=== PATIENT | female | born 1970 | race Caucasian/White ===

== ENCOUNTER 2022-01-10 06:54 | Emergency (ER) | payer OTHER ==
[2022-01-10] MEDS ORDERED: ONDANSETRON 4 MG/2 ML VIAL IVP STA (07:45)
[2022-01-10] MEDS ORDERED: KETOROLAC 15 MG/ML VIAL IVP STA (07:45)
[2022-01-10] MEDS ORDERED: HYDROmorphone 1 MG/ML CARPUJECT IVP STA (07:45)
[2022-01-10] MEDS ORDERED: SODIUM CHLORIDE 0.9% 1,000 ML IV STA (07:45)
--- NOTE | 2022-01-10 07:46 | ED Physician Documentation ---
PD HPI ABD PAIN - Stated complaint Stated Complaint: BACK/SIDE PAIN - Chief complaint Chief Complaint: Abd Pain - History obtained from History obtained from: Patient - Additional information Additional information: 51-year-old woman with history of celiac disease, colitis, recurrent renal colic with lithotripsy x4, history of cholecystectomy. She has had some minor right flank pain over the last few weeks but became much more severe around 7 PM last night. Very reminiscent of prior renal colic. She is nauseous with it. No primary urinary complaints. Review of Systems Ten Systems: 10 systems reviewed and negative Constitutional: denies: Fever, Chills Throat: reports: Reviewed and negative Cardiac: reports: Reviewed and negative Respiratory: reports: Reviewed and negative PD PAST MEDICAL HISTORY - Present Medications Home Medications: Ambulatory Orders Medication Instructions Recorded Confirmed Oxycodone HCl/Acetaminophen 1 - 2 each PO Q6H PRN #14 tablet 01/10/22 [Percocet 5-325 mg Tablet] - Allergies Allergies/Adverse Reactions: Allergies Allergy/AdvReac Type Severity Reaction Status Date / Time Penicillins Allergy Anaphylaxis Verified 01/10/22 07:24 PD ED PE NORMAL - Vitals Vital signs reviewed: Yes - General General: Alert and oriented X 3, Other (She appears uncomfortable clutching the right flank) - Cardiac Cardiac: RRR, No murmur - Respiratory Respiratory: No respiratory distress, Clear bilaterally - Abdomen Abdomen: Soft, Non tender - Back Back: No CVA TTP - Neuro Neuro: Alert and oriented X 3, Normal speech Results - Vitals Vitals: Vital Signs - 24 hr 01/10/22 01/10/22 07:18 09:32 Temperature 36.7 C 36.5 C Heart Rate 64 48 L Respiratory 22 18 Rate Blood Pressure 111/77 103/66 O2 Saturation 97 100 Oxygen O2 Source Room air - Labs Labs: Laboratory Tests 01/10/22 01/10/22 01/10/22 07:30 07:52 07:52 WBC 5.9 RBC 4.52 Hgb 13.9 Hct 42.4 MCV 93.8 MCH 30.8 MCHC 32.8 RDW 13.2 Plt Count 234 MPV 10.9 H Neut # (Auto) 3.5 Lymph # (Auto) 1.5 Geary # (Auto) 0.7 Eos # (Auto) 0.1 Baso # (Auto) 0.1 Absolute Nucleated RBC 0.00 Nucleated RBC % 0.0 Sodium 137 Potassium 4.2 Chloride 102 Carbon Dioxide 26 Anion Gap 9.0 BUN 30 H Creatinine 0.8 Estimated GFR (MDRD) 75 L Glucose 81 Calcium 9.5 Total Bilirubin 0.6 AST 33 ALT 24 Alkaline Phosphatase 56 Total Protein 7.3 Albumin 4.5 Globulin 2.8 Albumin/Globulin Ratio 1.6 Lipase 40 Urine Color YELLOW Urine Clarity HAZY Urine pH 6.0 Ur Specific [place] 1.010 Urine Protein NEGATIVE Urine Glucose (UA) NEGATIVE Urine Ketones NEGATIVE Urine Occult Blood NEGATIVE Urine Nitrite NEGATIVE Urine Bilirubin NEGATIVE Urine Urobilinogen 0.2 (NORMAL) Ur Leukocyte Esterase NEGATIVE Urine RBC None Seen Urine WBC 0-3 Ur Squamous Epith Cells MANY Squamous H Urine Bacteria Rare Ur Microscopic Review INDICATED Urine Culture Comments NOT INDICATED PD MEDICAL DECISION MAKING - ED course ED course: 51-year-old woman presents with pain reminiscent of prior renal colic on the right. She is in significant pain when she gets here, that said after 1 mg of Dilaudid, 15 mg of Toradol, and 4 mg of Zofran she is much more comfortable. Pain went from a 15 on the 10 scale to mild and fleeting but not 0. We had a long discussion about CT imaging given her history and she would like to go ah ead with it today with understanding of the risks of radiation. 51-year-old woman presents with acute severe left flank pain. CT imaging demonstrates no stone on that side, but note that she has a hip prosthetic on that side so may be obscuring it. There is also a large stool volume on that side which could be explanatory especially given the lack of hematuria. Departure - Departure Disposition: 01 Home, Self Care Clinical Impression: Flank pain, acute Condition: Good Record reviewed to determine appropriate education?: Yes Instructions: ED Abdominal Pain Female Non-Specific Abdominal Pain Prescriptions: Oxycodone HCl/Acetaminophen [Percocet 5-325 mg Tablet] 1 - 2 each PO Q6H PRN #14 tablet PRN Reason: pain Comments: I sent prescription for pain medication to [facility] in [place]. As discussed at the radiologist thought you might have a small left ureteral stone, that said since we both agree your pain is on the right, this would not explain it. You do have a large stool volume especially in the right side of the colon which may be causing your pain. It is also possible that your pain could be caused by a small stone that is hiding behind your hip prosthesis. That is less likely since there is no blood in your urine. Return for new or worsening symptoms. Follow-up with primary care, next available appointment. I am prescribing a short course of narcotic pain medication for you. These are potentially dangerous and addictive medications that should be used carefully. These medications may constipate you. Take an bqbv-otb-remccud stool softener (docusate) twice daily with plenty of water while taking these medications. If you go 24 hours without a bowel movement, take [id number]-woyvtod miralax, per package instructions. Do not drink or drive while taking these medications. If you received narcotic or sedating medications while in the emergency department, do not drive for 24 hours. Store this medication in a safe, secure place and out of reach of children. It is a violation of federal law to give or sell this medication to another person or to use in a manner other than prescribed. The ED will not refill narcotic prescriptions, including prescriptions lost or stolen. To dispose of unwanted medications: 1. [facility] at [address] in [place] has a medication drop box. They accept prescription medications (in pill form) Thursday through Thursday 9:00 a.m. to 5:00 p.m. 2. [facility] accepts prescription medications (in pill form only) for disposal year round. Call for more information. 3. Contact the [facility] for the next [facility] sponsored prescription drug collection event. , [phone], or [phone]; Note that many narcotic pain relievers also contain Tylenol/acetaminophen. Please ensure that your total dose of acetaminophen from all sources does not exceed 3 g (3000 mg) per day.
[2022-01-10 07:52] LABS: BILIRUBIN,URINE NEGATIVE (NEGATIVE); GLUCOSE, URINE (UA) NEGATIVE (NEGATIVE); KETONES,URINE (UA) NEGATIVE (NEGATIVE); LEUKOCYTE ESTERASE, URINE NEGATIVE (NEGATIVE); NITRITE,URINE NEGATIVE (NEGATIVE); OCCULT BLOOD,URINE NEGATIVE (NEGATIVE); PROTEIN,URINE NEGATIVE (NEGATIVE); UROBILINOGEN,URINE 0.2 (NORMAL) E.U./dL (NORMAL)
[2022-01-10 07:54] LABS: CLARITY,URINE HAZY (CLEAR)
[2022-01-10 07:57] LABS: BASOPHILS # (AUTO) 0.1 10^3/uL (0.0-0.1); BASOPHILS % (AUTO) 0.9 %; EOSINOPHILS # (AUTO) 0.1 10^3/uL (0.0-0.7); EOSINOPHILS % (AUTO) 2.4 %; HCT - HEMATOCRIT 42.4 % (37.0-47.0); HGB - HEMOGLOBIN 13.9 g/dL (12.0-16.0); LYMPHOCYTES # (AUTO) 1.5 10^3/uL (1.5-3.5); LYMPHOCYTES % (AUTO) 25.3 %; MEAN CORPUSCULAR HEMOGLOBIN 30.8 pg (27.0-31.0); MEAN CORPUSCULAR HGB CONC 32.8 g/dL (32.0-36.0); MEAN CORPUSCULAR VOLUME 93.8 fL (81.0-99.0); MEAN PLATELET VOLUME 10.9 fL (7.9-10.8); MONOCYTES # (AUTO) 0.7 10^3/uL (0.0-1.0); MONOCYTES % (AUTO) 11.1 %; NEUTROPHILS # (AUTO) 3.5 10^3/uL (1.5-6.6); NEUTROPHILS % (AUTO) 60.1 %; PLT - PLATELET COUNT 234 10^3/uL (130-450); RED BLOOD COUNT 4.52 10^6/uL (4.20-5.40); RED CELL DISTRIBUTION WIDTH 13.2 % (12.0-15.0); WHITE BLOOD COUNT 5.9 x10^3/uL (4.8-10.8)
[2022-01-10 08:01] LABS: BACTERIA,URINE Rare /HPF (None Seen); RBC,URINE None Seen /HPF (0-5); SQUAMOUS EPITHELIAL CELL,UR MANY Squamous (<= Few); WBC,URINE 0-3 /HPF (0-5)
[2022-01-10 08:11] LABS: ALBUMIN 4.5 g/dL (3.2-5.5); ALBUMIN/GLOBULIN RATIO 1.6 (1.0-2.2); BILIRUBIN,TOTAL 0.6 mg/dL (0.2-1.0); CALCIUM 9.5 mg/dL (8.5-10.3); CREATININE 0.8 mg/dL (0.4-1.0); POTASSIUM 4.2 mmol/L (3.5-5.0); TOTAL PROTEIN 7.3 g/dL (6.7-8.2)
--- NOTE | 2022-01-10 09:25 | CT Report ---
PROCEDURE: Abdomen/Pelvis WO INDICATIONS: R flank pain TECHNIQUE: Noncontrast 5 mm thick sections acquired from the diaphragms to the symphysis. 5 mm coronal and sagi ttal reformats were then performed. For radiation dose reduction, the following was used: automated exposure control, adjustment of mA and/or kV according to patient size. COMPARISON: None. FINDINGS: Image quality: Excellent. ABDOMEN: Lung bases: Dependent atelectasis is seen in the lung bases. Heart size is normal. Solid organs: Liver and spleen are normal in size. Gallbladder is surgically absent. Pancreas is n ormal in contours. No adrenal nodules. Kidneys are normal in size. A 2 mm nonobstructing calculus i s seen in the interpolar region of the left kidney. No right renal calculus. An additional 2 mm calcu jaida is seen in the region of the left ureterovesicular junction (image 134 series 3), which could rep resent phlebolith or small distal ureteral calculus. No hydronephrosis. Peritoneum and bowel: Unenhanced bowel loops demonstrate normal wall thickness and caliber. Moderat e stool is seen throughout the colon. No free fluid or air. Nodes and vessels: No retroperitoneal or mesenteric adenopathy by size criteria. Aorta and inferior vena cava are normal in caliber. Miscellaneous: No ventral hernias. PELVIS: Genitourinary: Bladder wall thickness is normal. Miscellaneous: No inguinal hernias or adenopathy. Bones: No suspicious bony lesions. No vertebral body compression fractures. Status post right hip arthroplasty with surrounding metallic streak artifact. Mild degenerative changes are seen in spine. IMPRESSION: 1.Possible 2 mm distal ureteral calculus versus phlebolith near the left ureterovesicular junction. A nonobstructing 2 mm calculus is seen in the interpolar region of the left kidney. No hydronephrosis. No right-sided renal calculus. 2.Status post cholecystectomy. Reviewed by: Gerson Evans MD on 01/10/2022 9:24 AM PDT Approved by: Gerson Evans MD on 01/10/2022 9:24 AM PDT Station ID: [id number]
[2022-01-10] MEDS ORDERED: MAGNESIUM CITRATE 296 ML BOTTLE PO STA (09:43)
[2022-01-10 10:21] VITALS: BP 110/69
== END 2022-01-10 10:20 | disposition home or self-care (01) ==
LOC: ED 06:54
DX: R10.9 Unspecified abdominal pain (principal)
CPT/HCPCS: 36415; 74176; 80053; 81001; 83690; 85025; 96374; 96375; 99284; A9270; J1170; 81003; 87086